=== PATIENT | female | born 1965 | race Caucasian/White ===

== ENCOUNTER 2024-03-12 14:54 | Emergency (ER) | payer BC, OTHER ==
[2024-03-12 15:00] VITALS: TEMP 98.3; BMI 26.6
[2024-03-12] MEDS ORDERED: LIDOCAINE 4% PATCH TP ONE (16:32)
[2024-03-12] MEDS ORDERED: ACETAMINOPHEN 325 MG TABLET (FP) ONE (16:32)
[2024-03-12] MEDS: ACETAMINOPHEN 325 MG TABLET (FP) PO ONE (16:48)
[2024-03-12] MEDS: LIDOCAINE 4% PATCH TP ONE (16:49)
[2024-03-12 16:55] LABS: BASO % 0.6 % (0-2.0); EOS % 0.3 % (0-4.5); HEMATOCRIT 38.3 % (32.4-45.2); HEMOGLOBIN 13.2 GM/dL (10.7-15.3); LYMPH % 16.8 % (8-40); MCH 31.9 pg (25.7-33.7); MCHC 34.4 g/dl (32.0-36.0); MEAN CELL VOLUME 92.8 fl (80-96); MEAN PLT VOLUME 7.1 fl (7.5-11.1); MONO % 6.9 % (3.8-10.2); NEUT % 75.4 % (42.8-82.8); PLATELET COUNT 276 10^3/uL (134-434); RBC 4.12 M/mm3 (3.60-5.2); RDW 13.8 % (11.6-15.6); WHITE BLOOD COUNT 9.8 K/mm3 (4.0-10.0)
[2024-03-12 16:56] LABS: PH,URINE 7.5 (5.0-8.0); URINE APPEARANCE CLEAR; URINE BILIRUBIN NEGATIVE (NEGATIVE); URINE COLOR YELLOW; URINE GLUCOSE (UA) NEGATIVE (NEGATIVE); URINE KETONE NEGATIVE (NEGATIVE); URINE LEUK ESTERASE NEGATIVE (NEGATIVE); URINE NITRITE NEGATIVE (NEGATIVE); URINE PROTEIN NEGATIVE (NEGATIVE)
[2024-03-12 17:24] LABS: POTASSIUM 4.8 mmol/L (3.5-5.1)
[2024-03-12 17:25] LABS: CALCIUM 9.8 mg/dL (8.5-10.1)
[2024-03-12 17:26] LABS: BLOOD UREA NITROGEN 20.4 mg/dL (7-18)
[2024-03-12 17:29] LABS: CREATININE 1.1 mg/dL (0.55-1.3)
[2024-03-12 17:31] LABS: BILIRUBIN,TOTAL 0.9 mg/dL (0.2-1)
[2024-03-12 18:47] VITALS: RESP 20
[2024-03-12] MEDS ORDERED: KETOROLAC TROMETHAMINE 15 MG/ML VIAL ONE (19:34)
[2024-03-12] MEDS: KETOROLAC TROMETHAMINE 15 MG/ML VIAL IVPUSH ONE (19:37)
[2024-03-12 21:29] VITALS: BP 127/79; PULSE 67
== END 2024-03-12 21:37 | disposition home or self-care (01) ==
LOC: JER 14:54
PROC: 3E0333Z Introduction of Anti-inflammatory into Peripheral Vein, Percutaneous Approach (ICD-10-PCS; principal; 2024-03-12)
DX: R10.31 Right lower quadrant pain (principal); N20.0 Calculus of kidney; M54.9 Dorsalgia, unspecified
CPT/HCPCS: 36415; 72131-TC; 74177-TC; 80053; 81003; 85025; 87086; 99285-25; Q9967